=== PATIENT | female | born 1940 | race Caucasian/White ===

== ENCOUNTER 2016-10-19 08:17 | Day surgery (SDC) | payer OTHER ==
[~2016-10-19] VITALS: Ht 157.5 cm; Wt 109.3 kg
[~2016-10-19 08:17] MED LIST: ADULT LOW DOSE81 M1 PO; ADVAIR 500/501 DISK IH; ALENDRONATE SOD70 MG PO; ASPIR-TRIN325 M1 PO; Ambien PO; Aspirin E.C. PO; CATAPRES0.1 MG PO; CLONIDINE HCL0.1 MG PO; COLACE100 MG PO; COUMADIN2 MG PO; COUMADIN3 M1 PO; COUMADIN3 MG PO; Centrum Silver Chewa PO; Coumadin,Jantoven PO; DILAUDID4 MG PO; Dilaudid PO; EXFORGE 5/321 TABLET PO; FOSAMAX70 MG PO; FUROSEMIDE40 MG PO; Fosamax PO; GLUCOSAMINE &1 EAC1 PO; K-DUR20 MEQ PO; LABETALOL HCL100 MG PO; LASIX40 MG PO; LEVOXYL200 MCG PO; Levothroid,Synthroid PO; METHIMAZOLE5 MG PO; Maalox, Mylanta PO; NORVASC5 MG PO; Normodyne,Trandate PO; Norvasc PO; OSCAL 250 W/VI250 MG PO; OYST-CAL D, OS500 M1 PO; Osteo-Biflex,Flex-A- PO; PROAIR HFA8.5 GM IH; PROTONIX40 MG PO; Proventil,Ventolin H IH; SPIRIVA1 INHALATI IH; ST. JOSEPH ASPI81 MG PO; TAPAZOLE5 MG PO; TRANDATE100 MG PO; TYLENOL WITH C1 EACH PO; Tapazole PO; Tylenol Regular Stre PO; Vitamin B-12 PO
== END 2016-10-19 16:05 | disposition home or self-care (01) ==
LOC: CATH 08:17
DX: R94.39 Abnormal result of other cardiovascular function study (principal); R06.02 Shortness of breath; R60.9 Edema, unspecified; I25.10 Atherosclerotic heart disease of native coronary artery without angina pectoris; I27.2 Other secondary pulmonary hypertension; G47.33 Obstructive sleep apnea (adult) (pediatric); I10 Essential (primary) hypertension; R07.9 Chest pain, unspecified
CPT/HCPCS: 93005; C1760; C1769; C1887; C1894; J1644; J2250; J3010; J7050

== ENCOUNTER 2018-02-15 20:42 | Inpatient (IN) | payer OTHER ==
[~2018-02-15] VITALS: Ht 152.4 cm; Wt 112.0 kg
[~2018-02-15 20:42] MED LIST changes: +DIOVAN320 MG PO; -LEVOXYL200 MCG PO; +SYNTHROID175 MCG PO; -TRANDATE100 MG PO
[2018-02-15 21:29] LABS: HEMATOCRIT 41.2 % (36.0-46.0); HEMOGLOBIN 13.3 G/DL (11.9-15.5); MCH 28.1 PG (29.0-34.0); MCHC 32.3 G/DL (30.0-36.0); MCV 86.9 FL (83-99); PLATELET COUNT 308 K/uL (156-360); RBC DIS.WIDTH-CV 14.1 % (11.8-14.6); RBC DIS.WIDTH-SD 45.1 % (39-53); RED BLOOD COUNT 4.74 M/uL (3.80-5.20); WHITE BLOOD COUNT 9.8 K/uL (4.1-10.2)
[2018-02-15 21:41] LABS: CHLORIDE 106 mEq/L (99-109); POTASSIUM 4.8 mEq/L (3.7-5.4); SODIUM 140 mEq/L (136-147)
[2018-02-15 21:46] LABS: CREATININE 0.9 mg/dL (0.6-1.3); GFR ESTIMATE (CALCULATED) > 59 mL/min/
[2018-02-15 21:47] LABS: UREA NITROGEN (BUN) 24 mg/dL (9-23)
[2018-02-15 21:52] LABS: TROP-I INTERPRETATION NEGATIVE; TROPONIN-I < 0.01 ng/mL (0.0-0.30)
[2018-02-15 21:57] LABS: PTT 37.7 SEC (25-37)
[2018-02-15 22:08] LABS: APPEARANCE CLEAR ((CLEAR)); BILIRUBIN NEGATIVE; BLOOD MODERATE; COLOR YELLOW ((YELLOW)); GLUCOSE (STRIP) NEGATIVE; KETONES NEGATIVE; LEUKOCYTES LARGE; NITRITE NEGATIVE; PROTEIN (STRIP) NEGATIVE; SPECIFIC GRAVITY 1.012 (1.000-1.030); UROBILINOGEN 0.2 MG/DL (0.2-1.0)
[2018-02-15 22:12] LABS: GLUCOSE 105 mg/dL (70-99)
[2018-02-15 22:14] LABS: INTER. NORMALIZED RATIO 2.6
[2018-02-15 22:36] LABS: RED BLOOD CELLS 40-50 /HPF (0-5); WHITE BLOOD CELLS 30-40 /HPF (0-5)
[2018-02-15 22:37] LABS: BACTERIA RARE /HPF; EPITHELIAL CELLS RARE /HPF; MUCUS RARE /LPF; UCUL ADDED? YES
[2018-02-16] VITALS (7 sets, daily range): BP systolic 138–188; BP diastolic 60–78
[2018-02-16] MEDS ORDERED: METOLAZONE5 MG PO (00:06)
[2018-02-16] MEDS ORDERED: INCRUSE ELLI62.5 MCG IH (00:07)
[2018-02-16] MEDS ORDERED: ZANTAC150 MG PO (00:08)
[2018-02-16] MEDS ORDERED: SINGULAIR10 MG PO (00:08)
[2018-02-16 07:38] LABS: TROP-I INTERPRETATION NEGATIVE; TROPONIN-I < 0.01 ng/mL (0.0-0.30)
[2018-02-16 07:50] LABS: MAGNESIUM 1.9 mg/dl (1.3-2.7); PHOSPHORUS 2.7 mg/dL (2.5-4.9)
[2018-02-16 07:53] LABS: INTER. NORMALIZED RATIO 2.7
[2018-02-16 12:26] LABS: TROP-I INTERPRETATION NEGATIVE; TROPONIN-I < 0.01 ng/mL (0.0-0.30)
[2018-02-17] VITALS (7 sets, daily range): BP systolic 84–180; BP diastolic 51–79
[2018-02-17 05:27] LABS: HEMATOCRIT 41.9 % (36.0-46.0); HEMOGLOBIN 13.6 G/DL (11.9-15.5); MCH 27.4 PG (29.0-34.0); MCHC 32.5 G/DL (30.0-36.0); MCV 84.5 FL (83-99); PLATELET COUNT 369 K/uL (156-360); RBC DIS.WIDTH-CV 13.8 % (11.8-14.6); RBC DIS.WIDTH-SD 42.5 % (39-53); RED BLOOD COUNT 4.96 M/uL (3.80-5.20); WHITE BLOOD COUNT 9.3 K/uL (4.1-10.2)
[2018-02-17 05:30] LABS: INTER. NORMALIZED RATIO 2.7
[2018-02-17 05:57] LABS: CHLORIDE 96 MEQ/L (99-109); GFR ESTIMATE (CALCULATED) 57 mL/min/; POTASSIUM 3.9 MEQ/L (3.7-5.4); SODIUM 136 MEQ/L (136-147); UREA NITROGEN (BUN) 20 mg/dL (9-23)
[2018-02-17 06:06] LABS: GLUCOSE 201 mg/dL (70-99)
[2018-02-18 05:00] VITALS: BP 131/63
[2018-02-18 06:03] LABS: INTER. NORMALIZED RATIO 3.2
[2018-02-18 08:44] VITALS: BP 152/72
[2018-02-18 13:14] VITALS: BP 144/66
[2018-02-18 18:14] VITALS: BP 140/63
[2018-02-18 19:34] VITALS: BP 145/59
[2018-02-18 23:52] VITALS: BP 141/63
[2018-02-19 04:54] VITALS: BP 129/60
[2018-02-19 05:49] LABS: INTER. NORMALIZED RATIO 3.7
[2018-02-19 07:48] VITALS: BP 131/73
[2018-02-19 10:12] LABS: BASOPHIL (%) 0.3 % (0-1); EOSINOPHIL (%) 0.8 % (0-5); EOSINOPHIL COUNT 0.1 K/uL (0-0.3); HEMATOCRIT 45.7 % (36.0-46.0); HEMOGLOBIN 14.9 G/DL (11.9-15.5); LYMPHOCYTE COUNT 2.9 K/uL (1.0-2.8); MCH 28.1 PG (29.0-34.0); MCHC 32.6 G/DL (30.0-36.0); MCV 86.1 FL (83-99); MONOCYTE (%) 10.6 % (3-12); MONOCYTE COUNT 1.1 K/uL (0-0.8); NEUTROPHIL (%) 59.3 % (45-76); NEUTROPHIL COUNT 6.2 K/uL (1.8-6.4); RBC DIS.WIDTH-CV 14.3 % (11.8-14.6); RED BLOOD COUNT 5.31 M/uL (3.80-5.20); WHITE BLOOD COUNT 10.4 K/uL (4.1-10.2)
[2018-02-19 10:41] LABS: CHLORIDE 97 MEQ/L (99-109); CREATININE 1.1 MG/DL (0.6-1.3); GFR ESTIMATE (CALCULATED) 51 mL/min/; GLUCOSE 166 mg/dL (70-99); SODIUM 138 MEQ/L (136-147)
[2018-02-19 10:42] LABS: UREA NITROGEN (BUN) 33 mg/dL (9-23)
[2018-02-19 11:04] LABS: PLATELET COUNT 258 K/uL (156-360)
[2018-02-19 12:52] VITALS: BP 117/59
[2018-02-19] MEDS ORDERED: PREDNISONE5 MG PO (14:39)
[2018-02-19 15:55] VITALS: BP 134/60
== END 2018-02-19 17:33 | disposition home health service (06) | DRG 189 ==
LOC: EME 20:42 → EDOF 02-16 03:24 → 4EAST 02-16 03:24 → ENRESERV 02-16 03:27 → 4EAST 02-16 05:08
PROVIDERS: Emergency Medicine; Hospitalist; Internal Medicine
DX: J96.01 Acute respiratory failure with hypoxia (principal); I11.0 Hypertensive heart disease with heart failure; I50.33 Acute on chronic diastolic (congestive) heart failure; J20.9 Acute bronchitis, unspecified; I27.23 Pulmonary hypertension due to lung diseases and hypoxia; D68.9 Coagulation defect, unspecified; J45.901 Unspecified asthma with (acute) exacerbation; G47.33 Obstructive sleep apnea (adult) (pediatric); E66.01 Morbid (severe) obesity due to excess calories; J44.0 Chronic obstructive pulmonary disease with (acute) lower respiratory infection; Z82.49 Family history of ischemic heart disease and other diseases of the circulatory system; Z68.43 Body mass index [BMI] 50.0-59.9, adult; F40.240 Claustrophobia; E11.9 Type 2 diabetes mellitus without complications; E03.9 Hypothyroidism, unspecified; E78.5 Hyperlipidemia, unspecified; I25.10 Atherosclerotic heart disease of native coronary artery without angina pectoris; Z77.22 Contact with and (suspected) exposure to environmental tobacco smoke (acute) (chronic); Z86.718 Personal history of other venous thrombosis and embolism; Z86.711 Personal history of pulmonary embolism; Z79.01 Long term (current) use of anticoagulants; R91.1 Solitary pulmonary nodule
CPT/HCPCS: 71046; 71275; 80048; 81003; 83735; 83880; 84100; 84484; 85025; 85027; 85610; 85730; 87086; 93005; 93306; 94640; 94640 76; 94660; 94799; 99202; 99281; 99285; J1940; J2930; J7512

== ENCOUNTER 2018-02-24 13:51 | Observation (INO) | payer OTHER ==
[~2018-02-24] VITALS: Ht 157.5 cm; Wt 113.0 kg
[~2018-02-24 13:51] MED LIST changes: +INCRUSE ELLI62.5 MCG IH; +METOLAZONE5 MG PO; +PREDNISONE5 MG PO; +SINGULAIR10 MG PO; +ZANTAC150 MG PO
[2018-02-24 14:42] LABS: HEMATOCRIT 44.7 % (36.0-46.0); MCH 28.1 PG (29.0-34.0); MCHC 33.6 G/DL (30.0-36.0); MCV 83.9 FL (83-99); RBC DIS.WIDTH-CV 14.4 % (11.8-14.6); RBC DIS.WIDTH-SD 43.8 % (39-53); RED BLOOD COUNT 5.33 M/uL (3.80-5.20); WHITE BLOOD COUNT 17.8 K/uL (4.1-10.2)
[2018-02-24 14:53] LABS: CHLORIDE 92 mEq/L (99-109); POTASSIUM 4.2 mEq/L (3.7-5.4)
[2018-02-24 14:55] LABS: GLUCOSE 247 mg/dL (70-99)
[2018-02-24 14:56] LABS: SODIUM 131 mEq/L (136-147)
[2018-02-24 14:59] LABS: GFR ESTIMATE (CALCULATED) 27 mL/min/
[2018-02-24 15:02] LABS: APPEARANCE CLOUDY ((CLEAR)); BILIRUBIN NEGATIVE; BLOOD SMALL; COLOR AMBER ((YELLOW)); GLUCOSE (STRIP) NEGATIVE; KETONES 5; LEUKOCYTES LARGE; NITRITE NEGATIVE; PROTEIN (STRIP) 100; SPECIFIC GRAVITY 1.013 (1.000-1.030)
[2018-02-24 15:04] LABS: CREATININE 1.9 mg/dL (0.6-1.3); UREA NITROGEN (BUN) 53 mg/dL (9-23)
[2018-02-24 15:05] LABS: TROP-I INTERPRETATION NEGATIVE; TROPONIN-I 0.03 ng/mL (0.0-0.30)
[2018-02-24 15:29] LABS: PLAT.SUFFICIENCY ADEQUATE; PLATELET COUNT 308 K/uL (156-360)
[2018-02-24 15:31] LABS: RED BLOOD CELLS RARE /HPF (0-5); WHITE BLOOD CELLS TNTC /HPF (0-5)
[2018-02-24 15:33] LABS: EPITHELIAL CELLS 1+ /HPF
[2018-02-24 15:34] LABS: BACTERIA 3+ /HPF; MUCUS TRACE /LPF; UCUL ADDED? YES
[2018-02-24] MEDS ORDERED: COLCHICINE0.6 M1 PO (15:49)
[2018-02-24 17:16] LABS: INTER. NORMALIZED RATIO 1.8
[2018-02-24 19:57] VITALS: BP 149/67
[2018-02-24 23:38] VITALS: BP 118/58
[2018-02-25] VITALS (7 sets, daily range): BP systolic 133–188; BP diastolic 59–84
[2018-02-25 06:15] LABS: HEMATOCRIT 41.7 % (36.0-46.0); HEMOGLOBIN 13.3 G/DL (11.9-15.5); MCH 27.7 PG (29.0-34.0); MCHC 31.9 G/DL (30.0-36.0); MCV 86.7 FL (83-99); PLATELET COUNT 275 K/uL (156-360); RBC DIS.WIDTH-CV 14.6 % (11.8-14.6); RBC DIS.WIDTH-SD 46.3 % (39-53); RED BLOOD COUNT 4.81 M/uL (3.80-5.20)
[2018-02-25 06:53] LABS: CHLORIDE 103 MEQ/L (99-109); POTASSIUM 4.1 MEQ/L (3.7-5.4); UREA NITROGEN (BUN) 41 mg/dL (9-23)
[2018-02-25 06:54] LABS: CREATININE 1.3 MG/DL (0.6-1.3); GFR ESTIMATE (CALCULATED) 42 mL/min/; GLUCOSE 101 mg/dL (70-99); SODIUM 140 MEQ/L (136-147)
[2018-02-25 12:55] LABS: INTER. NORMALIZED RATIO 1.7
[2018-02-26 03:20] VITALS: BP 124/56
[2018-02-26 06:55] LABS: INTER. NORMALIZED RATIO 1.6
[2018-02-26 08:58] VITALS: BP 126/64
[2018-02-26 11:29] VITALS: BP 118/61
[2018-02-26 16:24] VITALS: BP 155/69
[2018-02-26 20:03] VITALS: BP 122/54
[2018-02-26 23:10] LABS: C DIFF TOXIN NEGATIVE (NEGATIVE)
[2018-02-27] VITALS (7 sets, daily range): BP systolic 120–144; BP diastolic 46–74
[2018-02-27 06:28] LABS: INTER. NORMALIZED RATIO 1.5
[2018-02-27 07:50] LABS: HEMATOCRIT 45.5 % (36.0-46.0); HEMOGLOBIN 14.3 G/DL (11.9-15.5); MCH 27.3 PG (29.0-34.0); MCHC 31.4 G/DL (30.0-36.0); PLATELET COUNT 324 K/uL (156-360); RBC DIS.WIDTH-CV 14.2 % (11.8-14.6); RBC DIS.WIDTH-SD 45.5 % (39-53); RED BLOOD COUNT 5.23 M/uL (3.80-5.20); WHITE BLOOD COUNT 12.7 K/uL (4.1-10.2)
[2018-02-27 08:11] LABS: CHLORIDE 102 MEQ/L (99-109); CREATININE 1.1 MG/DL (0.6-1.3); GFR ESTIMATE (CALCULATED) 51 mL/min/; GLUCOSE 121 mg/dL (70-99); POTASSIUM 3.8 MEQ/L (3.7-5.4); SODIUM 139 MEQ/L (136-147); UREA NITROGEN (BUN) 23 mg/dL (9-23)
[2018-02-28 00:09] VITALS: BP 159/82
[2018-02-28 03:58] VITALS: BP 143/63
[2018-02-28 07:02] LABS: INTER. NORMALIZED RATIO 1.7
[2018-02-28 07:26] VITALS: BP 153/66
[2018-02-28 12:06] VITALS: BP 121/86
[2018-02-28 15:30] VITALS: BP 112/56
[2018-02-28 19:29] VITALS: BP 137/60
[2018-03-01 00:41] VITALS: BP 147/72
[2018-03-01 04:02] VITALS: BP 130/63
[2018-03-01 07:43] LABS: INTER. NORMALIZED RATIO 1.8
[2018-03-01] MEDS ORDERED: CIPROFLOXACIN500 M1 PO (07:51)
[2018-03-01] MEDS ORDERED: CARDIZEM CD120 M1 PO (07:53)
[2018-03-01 07:57] LABS: HEMATOCRIT 43.6 % (36.0-46.0); MCH 27.9 PG (29.0-34.0); MCHC 32.1 G/DL (30.0-36.0); MCV 86.9 FL (83-99); PLATELET COUNT 338 K/uL (156-360); RBC DIS.WIDTH-CV 14.3 % (11.8-14.6); RBC DIS.WIDTH-SD 45.5 % (39-53); RED BLOOD COUNT 5.02 M/uL (3.80-5.20); WHITE BLOOD COUNT 15.1 K/uL (4.1-10.2)
[2018-03-01 08:04] VITALS: BP 138/65
[2018-03-01 08:15] LABS: CHLORIDE 99 MEQ/L (99-109); CREATININE 0.9 MG/DL (0.6-1.3); GFR ESTIMATE (CALCULATED) > 59 mL/min/; GLUCOSE 126 mg/dL (70-99); POTASSIUM 3.7 MEQ/L (3.7-5.4); SODIUM 139 MEQ/L (136-147); UREA NITROGEN (BUN) 16 mg/dL (9-23)
[2018-03-01 11:14] VITALS: BP 109/56
== END 2018-03-01 15:54 ==
LOC: EME 13:51 → EDOF 15:34 → 2EASTP 15:34 → ENRESERV 15:39 → 4EAST 19:36 → ENRESERV 02-25 11:48 → 2EASTP 02-25 13:30
PROVIDERS: Emergency Medicine; Internal Medicine
DX: N39.0 Urinary tract infection, site not specified (principal); N17.9 Acute kidney failure, unspecified; D72.829 Elevated white blood cell count, unspecified; M10.9 Gout, unspecified; I48.91 Unspecified atrial fibrillation; Z79.01 Long term (current) use of anticoagulants; I27.29 Other secondary pulmonary hypertension; Z86.711 Personal history of pulmonary embolism; Z86.718 Personal history of other venous thrombosis and embolism; I11.0 Hypertensive heart disease with heart failure; I50.82 Biventricular heart failure; I50.32 Chronic diastolic (congestive) heart failure; G47.33 Obstructive sleep apnea (adult) (pediatric); Z98.890 Other specified postprocedural states; Z79.82 Long term (current) use of aspirin; Z86.19 Personal history of other infectious and parasitic diseases; E66.01 Morbid (severe) obesity due to excess calories; Z68.41 Body mass index [BMI] 40.0-44.9, adult; R26.89 Other abnormalities of gait and mobility; Z91.81 History of falling; Z83.3 Family history of diabetes mellitus; Z82.49 Family history of ischemic heart disease and other diseases of the circulatory system; Z82.3 Family history of stroke
CPT/HCPCS: 71045; 80048; 81003; 83605; 84484; 85027; 85610; 87040; 87077; 87086 GA; 87186; 87493; 93005; 94640; 94640 76; 94660; 94799; 97530 GP; 99202; 99281; 99285; G0378; J0696; J1644; J2405; J7040